=== PATIENT | female | born 1970 ===

== ENCOUNTER 2022-08-21 15:45 | Outpatient (RCR) | payer OTHER, SELFPAY | END 2022-10-22 14:43 | disposition home or self-care (01) | PROVIDERS: PCP Student in an Organized Health Care Education/Training Program; Visit Provider Student in an Organized Health Care Education/Training Program | DX: M25.511 Pain in right shoulder (principal); Z51.89 Encounter for other specified aftercare | CPT/HCPCS: 97110; 97140; 97161 ==